=== PATIENT | female | born 1965 | race Caucasian/White ===

== ENCOUNTER 2019-03-29 10:58 | Day surgery (SDC) | payer OTHER ==
[2019-03-29] MEDS ORDERED: LIDOCAINE 100 MG SYRINGE (13:17)
[2019-03-29] MEDS ORDERED: PROPOFOL 20 ML (13:17)
== END 2019-03-29 16:33 | disposition home or self-care (01) ==
LOC: GIL 10:58
DX: Z12.11 Encounter for screening for malignant neoplasm of colon (principal); K64.8 Other hemorrhoids; K57.30 Diverticulosis of large intestine without perforation or abscess without bleeding; E78.5 Hyperlipidemia, unspecified
CPT/HCPCS: 45378